=== PATIENT | female | born 2000 | race Hispanic/Latino ===

== ENCOUNTER 2021-09-10 23:09 | Inpatient (IN) | payer OTHER ==
[2021-09-10 23:19] VITALS: BMI 31.6
[2021-09-10 23:40] LABS: Fetal Membranes Rupture RUPTURE DETECTED (No Rupture)
[2021-09-11] MEDS ORDERED: hydrALAZINE 20 MG/ML VIAL SLOW IVP PRN (00:43)
[2021-09-11] MEDS ORDERED: Ondansetron PF 4 MG/2 ML Vial IVP PRN (01:00)
[2021-09-11] MEDS ORDERED: Promethazine HCl 25 MG/ML VIAL IM PRN (01:00)
[2021-09-11] MEDS ORDERED: Acetaminophen 500 MG TAB PO PRN (01:00)
[2021-09-11] MEDS ORDERED: Betamet Acet/Betamet Na Ph 30 MG/5 ML VIAL ONE (01:08)
[2021-09-11] MEDS ORDERED: Magnesium Sulfate 20 gm/500 ml 20 GM/500 ML BAG ONE ×2 (01:08→08:46)
[2021-09-11] MEDS ORDERED: Penicillin G Potassium 5 MILL.UNITS in Sodium Chloride 0.9% 100 ML IVPB SCH (01:30)
[2021-09-11] MEDS ORDERED: Betamet Acet/Betamet Na Ph 30 MG/5 ML VIAL IM SCH (01:30)
[2021-09-11] MEDS ORDERED: Magnesium Sulfate 20 gm/500 ml 4 GM/100 ML BAG IVPB SCH (01:30)
[2021-09-11 01:36] LABS: FFN Internal QC Analyzer PASS (PASS); FFN Internal QC Cassette PASS (PASS); Fetal Fibronectin POSITIVE (Negative)
[2021-09-11 01:46] LABS: SARS-CoV-2 NAA Rapid Test Not Detected (NotDetected)
[2021-09-11] MEDS ORDERED: Magnesium Sulfate/D5W 1 GM/100 ML BAG IVPB SCH ×2 (02:00→08:15)
[2021-09-11] MEDS ORDERED: Azithromycin 250 MG TAB PO SCH (02:00)
[2021-09-11] MEDS ORDERED: Magnesium Sulfate 20 gm/500 ml 20 GM/500 ML BAG IVPB SCH ×2 (02:00→08:45)
[2021-09-11] MEDS: Ampicillin 2 GM in Sodium Chloride 0.9% 100 ML IVPB SCH ×3 (02:25→13:40)
[2021-09-11 02:35] LABS: Mean Corpuscular HGB CONC 33.6 g/dL (32.0-36.0); Mean Corpuscular Hemoglobin 28.4 pg (27.0-33.0); Mean Corpuscular Volume 84.6 fl (81.6-98.3); Mean Platelet Volume 11.6 fl (7.4-10.4); Platelet Count 295 10x3/uL (150-450); Red Blood Cell (RBC) Count 4.22 10x6/uL (3.90-5.03); White Blood Cell (WBC) Count 9.9 10x3/uL (3.5-10.5)
[2021-09-11] MEDS ORDERED: Zolpidem Tartrate 5 MG TAB PO PRN (03:04)
[2021-09-11 03:07] LABS: HIV (1/2) Antibody/Antigen Non-Reactive (NonReactive); HIV 1/2 INDEX 0.07 S/CO (<1.00); Hep B Surf Ag Non-Reactive S/CO (NonReactive)
[2021-09-11 03:10] LABS: HBSAg Index 0.22 S/CO (0-0.99)
[2021-09-11 03:33] LABS: Syphilis Antibody Nonreactive (Nonreactive); Syphilis Antibody Index 0.06 S/CO (<1.00 Non-Reactive)
[2021-09-11] MEDS ORDERED: Penicillin G 2.5 MILL.units 2.5 MILL.UNITS in Premix Bag 1 BAG IVPB SCH (05:30)
[2021-09-11] MEDS ORDERED: metroNIDAZOLE 500 MG TAB PO SCH ×2 (09:00→12:30)
[2021-09-11] MEDS: metroNIDAZOLE 500 MG TAB PO SCH ×2 (12:26→13:40)
[2021-09-11 19:28] LABS: Chlamydia by PCR Not Detected (NotDetected); GC by PCR Not Detected (NotDetected)
== END 2021-09-11 15:28 | disposition short-term general hospital (02) | DRG 832 ==
LOC: CSHLD/OP 23:09 → CSHLD 09-11 00:14 → OBSVTOIN 09-11 01:00
PROVIDERS: ADMIT Obstetrics & Gynecology; ATTEND Obstetrics & Gynecology
DX: O42.913 Preterm premature rupture of membranes, unspecified as to length of time between rupture and onset of labor, third trimester (principal); O23.593 Infection of other part of genital tract in pregnancy, third trimester; Z3A.30 30 weeks gestation of pregnancy; Z20.822 Contact with and (suspected) exposure to COVID-19; R63.4 Abnormal weight loss; O26.893 Other specified pregnancy related conditions, third trimester; Z79.82 Long term (current) use of aspirin; N76.0 Acute vaginitis; O36.5930 Maternal care for other known or suspected poor fetal growth, third trimester, not applicable or unspecified
CPT/HCPCS: 36415; 51702; 76815; 82731; 84112; 85027; 86780; 86850; 86900; 86901; 87081; 87340; 87389; 87480; 87491; 87510; 87591; 87660; 99285; J0290; J2405; J2540; J3475; J3490; U0002